=== PATIENT | female | born 1930 | race Caucasian/White ===

== ENCOUNTER → 2016-10-22 | Outpatient (CLI) | payer MEDICARE, BC, OTHER ==
[~2016-10-22] MED LIST: /PANT40TA OR; ACET65TA OR; ALPR0.25 OR; ASPI81TA83 OR; LIPI20TA OR; PLAV75TA2 OR
[2016-10-22 07:19] LABS: MEAN CORPUSCULAR HEMOGLOBIN 28.5 pg (27.0-33.0); MEAN CORPUSCULAR HGB CONC 32.2 g/dl (32.0-36.5); MEAN CORPUSCULAR VOLUME 88.5 fl (80.0-96.0); RED CELL DISTRIBUTION WIDTH 12.3 % (11.5-14.5); WHITE BLOOD COUNT 11.2 K/mm3 (4.0-10.0)
[2016-10-22 08:13] LABS: ALBUMIN 2.9 GM/DL (3.2-5.2); ALBUMIN/GLOBULIN RATIO 0.94 (1.00-1.93); ALKALINE PHOSPHATASE 93 U/L (45-117); ALT/SGPT 13 U/L (12-78); ANION GAP 9 MEQ/L (8-16); AST/SGOT 13 U/L (15-37); BILIRUBIN,TOTAL 0.4 MG/DL (0.2-1.0); BLOOD UREA NITROGEN 9 MG/DL (7-18); CARBON DIOXIDE LEVEL 28 MEQ/L (21-32); CHLORIDE LEVEL 103 MEQ/L (98-107); CHOLESTEROL LEVEL 173 MG/DL (<200); CREATININE FOR GFR 0.67 MG/DL (0.55-1.02); GLOMERULAR FILTRATION RATE > 60.0 (>32); GLUCOSE, FASTING 108 MG/DL (83-110); POTASSIUM SERUM 4.2 MEQ/L (3.5-5.1); SODIUM LEVEL 140 MEQ/L (136-145); TRIGLYCERIDES LEVEL 72 MG/DL (<150)
--- NOTE | 2016-10-22 08:29 | REP ---
Noncontrast head CT study: History: Headache syndrome. Low back pain. Comparison head CT study December 20, 2011. CT findings: Digital lateral program director scouting radiograph is noncontributory. Bone window settings demonstrate an intact bony calvarium. There is a small quantity of mucous in the left side of the sphenoid sinus. Otherwise the visualized paranasal sinuses are clear. Mild vascular calcification is noted in the distal carotid arteries bilaterally. There is diffuse mild to moderate cerebral atrophy. There is no evidence of intracranial hemorrhage. No mass lesion, extra-axial fluid collection, infarct or midline shift is seen. No significant change from the comparison CT study. Impression: Diffuse moderate atrophy and vascular calcification. No other significant finding. Signed by Jc Baldwin MD 10/22/2016 11:21 A
--- NOTE | 2016-10-22 08:39 | REP ---
Lumbar spine five views: There are no comparisons. There is mild scoliosis convex left. There is diffuse demineralization. There is disc space narrowing and degenerative disc disease at L5 S1. There is mild disc space narrowing and degenerative disc disease at the remainder of the disc spaces. Vertebral body heights and alignment are normal. There is no spondylolysis or spondylolisthesis. There is mild facet osteoarthritis. The pedicles are unremarkable. Sacroiliac articulations are unremarkable. There is a calcification in the midline of the pelvis, possibly a calcified uterine fibroid. Impression: Multilevel degenerative disc disease. Mild scoliosis. Mild facet osteoarthritis. Signed by Gato Corbett MD 10/22/2016 08:31 A
== END ==
LOC: M RAD 07:54
PROVIDERS: ATTEND Family Medicine
DX: R51 Headache (principal); E78.2 Mixed hyperlipidemia; R53.83 Other fatigue; M35.3 Polymyalgia rheumatica

== ENCOUNTER → 2016-11-02 | Outpatient (REF) | payer MEDICARE, BC, OTHER | LOC: M LAB REF 10:00 | PROVIDERS: ATTEND Surgery | DX: G93.81 Temporal sclerosis (principal) ==

== ENCOUNTER → 2016-11-17 | Outpatient (CLI) | payer MEDICARE, BC, OTHER ==
[2016-11-17 07:41] LABS: BASO % 0.1 % (0.0-1.0); EOS # 0.1 K/mm3 (0.0-0.50); EOS % 0.7 % (0.0-3.0); LARGE UNSTAINED CELL # 0.1 K/mm3 (0.0-0.4); LARGE UNSTAINED CELL % 0.7 % (0.0-4.0); LYMPH # 1.8 K/mm3 (1.5-4.5); LYMPH % 12.7 % (24.0-44.0); MEAN CORPUSCULAR HEMOGLOBIN 29.4 pg (27.0-33.0); MEAN CORPUSCULAR HGB CONC 32.5 g/dl (32.0-36.5); MEAN CORPUSCULAR VOLUME 90.6 fl (80.0-96.0); MONO # 0.7 K/mm3 (0.0-0.8); NEUTROPHILS # 11.6 K/mm3 (1.8-7.7); NEUTROPHILS % 80.9 % (36.0-66.0); PLATELET COUNT, AUTOMATED 249 k/mm3 (150-450); RED CELL DISTRIBUTION WIDTH 13.3 % (11.5-14.5); WHITE BLOOD COUNT 14.4 K/mm3 (4.0-10.0)
[2016-11-17 08:00] LABS: ALBUMIN 3.2 GM/DL (3.2-5.2); ALBUMIN/GLOBULIN RATIO 1.23 (1.00-1.93); ALKALINE PHOSPHATASE 98 U/L (45-117); ALT/SGPT 19 U/L (12-78); ANION GAP 8 MEQ/L (8-16); AST/SGOT 11 U/L (15-37); BILIRUBIN,TOTAL 0.5 MG/DL (0.2-1.0); BLOOD UREA NITROGEN 20 MG/DL (7-18); CALCIUM LEVEL 8.3 MG/DL (8.8-10.2); CARBON DIOXIDE LEVEL 27 MEQ/L (21-32); CHLORIDE LEVEL 105 MEQ/L (98-107); CREATININE FOR GFR 0.78 MG/DL (0.55-1.02); GLOMERULAR FILTRATION RATE > 60.0 (>32); GLUCOSE, FASTING 82 MG/DL (83-110); POTASSIUM SERUM 3.6 MEQ/L (3.5-5.1); SODIUM LEVEL 140 MEQ/L (136-145); TOTAL PROTEIN 5.8 GM/DL (6.4-8.2)
[2016-11-17 08:13] LABS: ERYTHROCYTE SEDIMENTATION RATE 5 mm/hr (0-42)
== END ==
LOC: M LAB 06:59
PROVIDERS: ATTEND Psychiatry & Neurology Neurology
DX: M31.6 Other giant cell arteritis (principal); Z86.73 Personal history of transient ischemic attack (TIA), and cerebral infarction without residual deficits

== ENCOUNTER → 2016-12-13 | Outpatient (CLI) | payer MEDICARE, BC, OTHER | LOC: M LAB 07:17 | PROVIDERS: ATTEND Physician Assistant Medical | DX: M31.6 Other giant cell arteritis (principal) ==

== ENCOUNTER → 2016-12-20 | Outpatient (REF) | payer MEDICARE, OTHER ==
[2016-12-20 12:53] LABS: BASO % 0.1 % (0.0-1.0); EOS % 0.2 % (0.0-3.0); LARGE UNSTAINED CELL % 0.1 % (0.0-4.0); LYMPH # 0.3 K/mm3 (1.5-4.5); LYMPH % 1.6 % (24.0-44.0); MEAN CORPUSCULAR HEMOGLOBIN 29.5 pg (27.0-33.0); MEAN CORPUSCULAR HGB CONC 33.3 g/dl (32.0-36.5); MEAN CORPUSCULAR VOLUME 88.6 fl (80.0-96.0); MONO # 0.3 K/mm3 (0.0-0.8); MONO % 1.9 % (0.0-5.0); NEUTROPHILS # 15.8 K/mm3 (1.8-7.7); NEUTROPHILS % 96.1 % (36.0-66.0); PLATELET COUNT, AUTOMATED 260 k/mm3 (150-450); RED CELL DISTRIBUTION WIDTH 14.5 % (11.5-14.5); WHITE BLOOD COUNT 16.4 K/mm3 (4.0-10.0)
== END ==
LOC: M SFHCPLAZ 09:57
PROVIDERS: ATTEND Physician Assistant Medical
DX: M31.5 Giant cell arteritis with polymyalgia rheumatica (principal)

== ENCOUNTER → 2017-01-07 | Outpatient (CLI) | payer MEDICARE, BC, OTHER ==
--- NOTE | 2017-01-07 09:13 | REP ---
Clinical: Pain. Technique: AP, lateral and swimmer's views of the thoracic spine. Findings: Advanced osteopenia and multilevel moderate degenerative changes include endplate sclerosis/irregularity and disc space narrowing. No acute fracture / compression injury or subluxation identified. Impression: Advanced osteopenia and multilevel degenerative changes. No acute fracture / compression injury. Signed by Jd Isaac MD 01/07/2017 09:04 A
--- NOTE | 2017-01-07 09:29 | REP ---
Lumbar spine five views: Comparisons 10/22/2016. There is diffuse demineralization, unchanged. There is mild scoliosis convex left, unchanged. There is diffuse demineralization. There is mild degenerative disc disease at every lumbar level. This is unchanged. Additionally, there is grade 1 compression deformity of the L3 vertebral body as an interval change, likely from insufficiency. The remainder of the vertebral body heights are normal. Alignment is normal. The pedicles, facets and sacroiliac articulations are unremarkable and unchanged. There is a calcification in the pelvis as previously, possibly a calcified uterine fibroid. Impression: There is new grade 1 compression deformity of the L3 vertebral body, likely from insufficiency. There is mild degenerative disc disease throughout the lumbar spine. There is diffuse demineralization. Pelvic calcification. Mild scoliosis. Signed by Gato Corbett MD 01/07/2017 09:19 A
== END ==
LOC: M RAD 07:55
PROVIDERS: ATTEND Physician Assistant Medical
DX: M62.838 Other muscle spasm (principal)

== ENCOUNTER → 2017-01-17 | Outpatient (CLI) | payer MEDICARE, BC, OTHER ==
--- NOTE | 2017-01-17 16:41 | REP ---
Pelvis bilateral hip study: Five views: History: Pain in the right hip. Findings: AP view of the pelvis demonstrates an intact bony pelvic ring. There is diffuse osteopenia. Vascular calcification is noted. No bony destructive lesion is seen. Multiple AP and frog-leg views of each hip show smooth rounded femoral heads and intact hip joint spaces bilaterally. No fracture or erosive changes seen. Impression: Diffuse osteopenia. No acute bony abnormality. Signed by Jc Baldwin MD 01/17/2017 05:01 P
== END ==
LOC: M RAD 16:08
PROVIDERS: ATTEND Physician Assistant Medical
DX: M25.551 Pain in right hip (principal); M85.88 Other specified disorders of bone density and structure, other site; M31.5 Giant cell arteritis with polymyalgia rheumatica; M80.88XA Other osteoporosis with current pathological fracture, vertebra(e), initial encounter for fracture
CPT/HCPCS: 36415; 73502; 85652; 86140; G0463; J0897

== ENCOUNTER → 2017-01-17 | Outpatient (REF) | payer MEDICARE, BC, OTHER | LOC: M LABDRAW1 16:07 | PROVIDERS: ATTEND Physician Assistant Medical | DX: M25.551 Pain in right hip (principal) ==

== ENCOUNTER → 2017-02-25 | Outpatient (CLI) | payer MEDICARE, BC, OTHER ==
--- NOTE | 2017-02-25 15:59 | REP ---
MRI OF THE RIGHT HIP: TECHNIQUE: Coronal T1, STIR through the pelvis, T2 fat sat, right hip all three planes, axial oblique proton density fat sat right hip. There is no evidence of occult fracture of the visualized osseous structures. There is no avascular necrosis. There is mild chondromalacia with mild subchondral marrow edema in the right acetabulum. There does appear to be a tear of the superior labrum and anterior labrum of the right hip. There is no paralabral cyst. There is a normal amount of joint fluid. There is ill-defined high signal on T2-weighted images in the right obturator externus muscle particularly in the medial aspect most consistent with a strain or partial tear. No abnormal signal is seen in the surrounding soft tissue structures. Incidental note is made of significant diverticulosis. IMPRESSION: No occult fracture. 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 There are tears of the anterior labrum and superior labrum of the right hip. There also appears to be a strain or partial tear of the medial aspect of the right obturator externus muscle. Signed by Gato Gomez MD 02/25/2017 04:48 P
== END ==
LOC: M PLARAD 13:23
PROVIDERS: ATTEND Physician Assistant Medical
DX: M25.551 Pain in right hip (principal)

== ENCOUNTER → 2017-03-28 | Outpatient (CLI) | payer MEDICARE, BC, OTHER | LOC: M LAB 12:26 | PROVIDERS: ATTEND Physician Assistant Medical | DX: M31.5 Giant cell arteritis with polymyalgia rheumatica (principal) | CPT/HCPCS: 36415; 85652; 86140; G0463 ==

== ENCOUNTER → 2017-04-06 | Outpatient (CLI) | payer MEDICARE, BC, OTHER ==
[~2017-04-06] MED LIST changes: +CONRAY-43 43% 50ML VIAL (Q9960) As Ordered ONE; +LIDOCAINE 1% MDV 20ML VIAL As Ordered ONE; +methylPREDNISolone SUSP 40 MG/ML (DEPO-medrol) VIAL (J1030) As Ordered ONE
--- NOTE | 2017-04-06 17:13 | REP ---
RIGHT HIP ARTHROGRAM: The procedure was performed by YENI Valenzuela under the direct supervision of Dr. Gomez. The procedure along with its risks, benefits, and complications were discussed with the patient prior to the examination. Informed consent was obtained both verbally and written. The right femoral neck was localized using fluoroscopic guidance. The skin was marked, prepped and draped in the usual sterile fashion. A procedural time out was performed to ensure that the correct patient, site and procedure were being performed. Local infiltrative anesthesia was achieved using 1% lidocaine. Under fluoroscopic guidance, a 22-gauge spinal needle was inserted and advanced to the femoral neck. 0.5 mL of Conray-60 was injected to verify placement. 5 mL of a solution containing 4 mL of 1% lidocaine and 1 mL of Depo-Medrol 40 mg were injected into the joint space. The needle was then removed. The patient tolerated the procedure well and had no immediate complications. Fluoroscopy time of 7 seconds. Reviewed by YENI Patrick 04/06/2017 05:32 PEdited and Signed by Gato Gomez MD 04/07/2017 07:57 P
== END ==
LOC: M RADPRO 09:34
PROVIDERS: ATTEND Physician Assistant Medical
DX: M25.551 Pain in right hip (principal); S73.191S Other sprain of right hip, sequela; Z88.8 Allergy status to other drugs, medicaments and biological substances; X58.XXXD Exposure to other specified factors, subsequent encounter; Y99.8 Other external cause status
CPT/HCPCS: 20610; 77002; J1030; Q9960

== ENCOUNTER → 2017-04-26 | Outpatient (REF) | payer MEDICARE, OTHER ==
[~2017-04-26] MED LIST changes: -CONRAY-43 43% 50ML VIAL (Q9960) As Ordered ONE; -LIDOCAINE 1% MDV 20ML VIAL As Ordered ONE; -methylPREDNISolone SUSP 40 MG/ML (DEPO-medrol) VIAL (J1030) As Ordered ONE
== END ==
LOC: M SFHCPLAZ 11:58
PROVIDERS: ATTEND Physician Assistant Medical
DX: M31.5 Giant cell arteritis with polymyalgia rheumatica (principal); Z23 Encounter for immunization
CPT/HCPCS: 85652; 86140; 90662; G0008; G0463

== ENCOUNTER → 2017-05-02 | Outpatient (CLI) | payer MEDICARE, BC, OTHER ==
--- NOTE | 2017-05-02 15:50 | REP ---
MRI lumbar spine without contrast: History: Compression fracture the L3 vertebra. Comparison radiographs are from January 07, 2017 and October 22, 2016. Technique: Sagittal and axial T1 and T2-weighted scans are acquired in the usual fashion with and without fat saturation. Sequences include spin echo, turbo spin-echo, and STIR imaging sequences. 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 Minimal right-sided hydronephrosis. There is straightening of the normal lumbar lordosis. There is a recent osteoporotic wedge compression fracture deformity involving the superior endplate of the L4 vertebral body. This is new when compared with the radiographs from January 07, 2017. There is approximately 30% loss of anterior vertebral body height. T2 hyperintense marrow edema is seen along the superior endplate at L4 on STIR images. There is also wedging of the L3 vertebral body with approximately 40% loss of vertebral body height. This shows low T1 but normal T2 signal. This is felt to be subacute. It is an interval radiographic change between the January 07, 2017 and the October 22, 2016 plain films. No marrow edema is seen at this level on T2 STIR images. There is upward convexity to the inferior endplate at L2 but no other recent compression fracture is seen. Vertebral body heights are otherwise preserved. There is straightening of the normal lumbar lordosis. Conus medullaris is normal in position and appearance at T12-L1. Axial and sagittal images at L1-L2 demonstrate diffuse disc bulging indenting the ventral margin of the thecal sac. No central canal stenosis is seen. No neural foraminal encroachment is noted. At L2-3, there is moderate diffuse disc bulging. Canal size is borderline. There is mild ligamentum flavum hypertrophy. No neural foraminal encroachment seen. At L3-4, there is mild central canal stenosis due to ligamentum flavum and facet hypertrophy as well as diffuse disc bulging. The AP mid sagittal dimension of the thecal sac at L3-4 is 10 mm. There is mild right-sided neural foraminal narrowing at L3-4. At L4-5, there is mild diffuse disc bulging. Canal size is borderline. Mid sagittal dimension of the thecal sac is 11 mm. No neural foraminal encroachment. Some facet hypertrophy and ligamentum flavum hypertrophy are noted. At L5-S1, there is a grade 1 degenerative 2 mm L5-S1 spondylolisthesis due to degenerative disc disease. Mild facet hypertrophy is noted. No disc protrusion or neural foraminal narrowing is seen. No evidence of spondylolysis. 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 2. Degenerative spondylosis changes with central canal stenosis at L3-4 and L2-3 to some degree. 3. Recent osteoporotic wedge compression deformities at L4 and L3 as described above. Signed by Jc Baldwin MD 05/02/2017 05:04 P
== END ==
LOC: M PLARAD 13:42
PROVIDERS: ATTEND Physician Assistant Medical
DX: S32.030A Wedge compression fracture of third lumbar vertebra, initial encounter for closed fracture (principal); Y92.89 Other specified places as the place of occurrence of the external cause; Y93.9 Activity, unspecified; Y99.9 Unspecified external cause status

== ENCOUNTER → 2017-06-18 | Outpatient (CLI) | payer MEDICARE, BC, OTHER | LOC: M LAB 12:08 | PROVIDERS: ATTEND Physician Assistant Medical | DX: M31.5 Giant cell arteritis with polymyalgia rheumatica (principal) ==

== ENCOUNTER → 2017-09-28 | Outpatient (REF) | payer MEDICARE, OTHER ==
[2017-09-28 17:53] LABS: C REACTIVE PROTEIN QUANTITATIV < 0.30 MG/DL (0.00-0.30)
[2017-09-28 18:36] LABS: BASO % 0.4 % (0.0-1.0); EOS % 0.2 % (0.0-3.0); HEMATOCRIT 39.7 % (36.0-47.0); HEMOGLOBIN 13.1 g/dl (12.0-16.0); IMMATURE GRANULOCYTE % 0.6 % (0-3.0); LYMPH # 0.8 10^3/uL (1.5-4.5); LYMPH % 10.2 % (24.0-44.0); MEAN CORPUSCULAR HEMOGLOBIN 30.4 pg (27.0-33.0); MEAN CORPUSCULAR VOLUME 92.1 fl (80.0-96.0); MONO # 0.6 10^3/uL (0.0-0.8); MONO % 6.9 % (0.0-5.0); NEUTROPHILS # 6.7 10^3/uL (1.8-7.7); NEUTROPHILS % 81.7 % (36.0-66.0); PLATELET COUNT, AUTOMATED 272 10^3/uL (150-450); RED BLOOD COUNT 4.31 10^6/uL (4.00-5.40); WHITE BLOOD COUNT 8.2 10^3/uL (4.0-10.0)
[2017-09-28 19:42] LABS: ERYTHROCYTE SEDIMENTATION RATE 7 mm/hr (0-42)
== END ==
LOC: M LABDRAW1 15:16
DX: M31.6 Other giant cell arteritis (principal)
CPT/HCPCS: 86140

== ENCOUNTER → 2018-01-26 | Outpatient (CLI) | payer MEDICARE, OTHER | LOC: M WUC 17:34 | DX: S80.11XA Contusion of right lower leg, initial encounter (principal); X58.XXXA Exposure to other specified factors, initial encounter; Y92.9 Unspecified place or not applicable | CPT/HCPCS: 73590 ==

== ENCOUNTER → 2018-04-13 | Outpatient (REF) | payer MEDICARE, OTHER ==
[2018-04-13 12:36] LABS: BASO # 0.1 10^3/uL (0.0-0.2); BASO % 1.1 % (0.0-1.0); EOS # 0.2 10^3/uL (0.0-0.50); EOS % 2.3 % (0.0-3.0); HEMATOCRIT 43.3 % (36.0-47.0); HEMOGLOBIN 13.9 g/dl (12.0-15.5); IMMATURE GRANULOCYTE % 0.4 % (0-3.0); LYMPH # 1.2 10^3/uL (1.5-4.5); LYMPH % 16.2 % (24.0-44.0); MEAN CORPUSCULAR HEMOGLOBIN 29.6 pg (27.0-33.0); MEAN CORPUSCULAR HGB CONC 32.1 g/dl (32.0-36.5); MEAN CORPUSCULAR VOLUME 92.3 fl (80.0-96.0); MONO # 0.7 10^3/uL (0.0-0.8); MONO % 9.3 % (0.0-5.0); NEUTROPHILS # 5.1 10^3/uL (1.8-7.7); NEUTROPHILS % 70.7 % (36.0-66.0); PLATELET COUNT, AUTOMATED 283 10^3/uL (150-450); RED BLOOD COUNT 4.69 10^6/uL (4.00-5.40); RED CELL DISTRIBUTION WIDTH 13.2 % (11.5-14.5); WHITE BLOOD COUNT 7.2 10^3/uL (4.0-10.0)
[2018-04-13 13:18] LABS: ALBUMIN 3.7 GM/DL (3.2-5.2); ALBUMIN/GLOBULIN RATIO 1.32 (1.00-1.93); ALKALINE PHOSPHATASE 56 U/L (45-117); ALT/SGPT 17 U/L (12-78); ANION GAP 8 MEQ/L (8-16); AST/SGOT 19 U/L (7-37); BILIRUBIN,TOTAL 0.5 MG/DL (0.2-1.0); BLOOD UREA NITROGEN 15 MG/DL (7-18); C REACTIVE PROTEIN QUANTITATIV < 0.30 MG/DL (0.00-0.30); CALCIUM LEVEL 8.9 MG/DL (8.8-10.2); CARBON DIOXIDE LEVEL 28 MEQ/L (21-32); CHLORIDE LEVEL 107 MEQ/L (98-107); CHOLESTEROL LEVEL 203 MG/DL (<200); CHOLESTEROL RISK RATIO 2.445 (<5); CREATININE FOR GFR 0.74 MG/DL (0.55-1.30); GLOMERULAR FILTRATION RATE > 60.0 (>32); GLUCOSE, FASTING 84 MG/DL (70-100); HDL CHOLESTEROL 83 MG/DL (>40); LDL CHOLESTEROL 98 MG/DL (<100); NON-HDL-C 120 MG/DL; POTASSIUM SERUM 4.2 MEQ/L (3.5-5.1); SODIUM LEVEL 143 MEQ/L (136-145); TOTAL PROTEIN 6.5 GM/DL (6.4-8.2); TRIGLYCERIDES LEVEL 108 MG/DL (<150)
[2018-04-13 13:33] LABS: ERYTHROCYTE SEDIMENTATION RATE 6 mm/hr (0-42)
== END ==
LOC: M LABDRAW1 12:10
DX: M31.5 Giant cell arteritis with polymyalgia rheumatica (principal)
CPT/HCPCS: 80053

== ENCOUNTER → 2018-07-27 | Outpatient (CLI) | payer MEDICARE, BC ==
--- NOTE | 2018-07-31 15:28 | DEXA ---
AP SPINE L1 - L4 1.088 -0.9 1.1 LT FEMUR TOTAL 0.626 -3.0 -0.6 LT NECK 0.640 -2.9 -0.4 RT FEMUR TOTAL 0.597 -3.3 -0.9 RT NECK 0.647 -2.8 -0.3 TOTAL BODY TOTAL OTHER COMMENTS: Normal bone densitometry of the spine. 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 There is degenerative change in the spine which may artificially elevate the BMD. The density of the spine is increased 73.5% since the initial exam on 02/13/2004. The spine density has increased 60.9% since the most recent exam on 03/18/2015. The density of the left hip has decreased 15.4% since the initial exam on 02/13/2004. The density of the left hip has decreased 9.7% since the most recent exam on 03/18/2015. The density of the right hip has decreased 14.6% since the initial exam on 02/13/2004. The density of the right hip has decreased 8.9% since the most recent exam on 03/18/2015. FOLLOW-UP: Recommendation for the next bone density exam: 2 years. GEORGIE
== END ==
LOC: M WHC 07:44
PROVIDERS: ATTEND Physician Assistant Medical
DX: M80.88XA Other osteoporosis with current pathological fracture, vertebra(e), initial encounter for fracture (principal); M85.851 Other specified disorders of bone density and structure, right thigh; M85.852 Other specified disorders of bone density and structure, left thigh

== ENCOUNTER → 2018-08-14 | Outpatient (REF) | payer MEDICARE ==
[2018-08-14 12:42] LABS: ALBUMIN 3.6 GM/DL (3.2-5.2); BLOOD UREA NITROGEN 17 MG/DL (7-18); CARBON DIOXIDE LEVEL 30 MEQ/L (21-32); CHLORIDE LEVEL 105 MEQ/L (98-107); CREATININE FOR GFR 0.79 MG/DL (0.55-1.30); GLOMERULAR FILTRATION RATE > 60.0 (>32); GLUCOSE, FASTING 89 MG/DL (70-100); PHOSPHORUS LEVEL 3.2 MG/DL (2.5-4.9); POTASSIUM SERUM 4.7 MEQ/L (3.5-5.1); SODIUM LEVEL 142 MEQ/L (136-145)
[2018-08-14 12:56] LABS: PTH INTACT 52.7 PG/ML (18.5-88.0)
[2018-08-14 13:51] LABS: TOTAL 25(OH) VITAMIN D 53.8 NG/ML (30.0-100.0)
== END ==
LOC: M LABDRAW1 09:20
PROVIDERS: ATTEND Physician Assistant Medical
DX: M80.88XG Other osteoporosis with current pathological fracture, vertebra(e), subsequent encounter for fracture with delayed healing (principal)

== ENCOUNTER → 2018-10-17 | Outpatient (REF) | payer MEDICARE ==
[~2018-10-17] MED LIST changes: -/PANT40TA OR; +PROT1TAB2 OR
[2018-10-17 12:36] LABS: BASO # 0.1 10^3/uL (0.0-0.2); BASO % 0.8 % (0.0-1.0); EOS # 0.3 10^3/uL (0.0-0.50); EOS % 4.4 % (0.0-3.0); HEMATOCRIT 41.5 % (36.0-47.0); HEMOGLOBIN 13.3 g/dl (12.0-15.5); LYMPH % 13.5 % (24.0-44.0); MEAN CORPUSCULAR HEMOGLOBIN 29.3 pg (27.0-33.0); MEAN CORPUSCULAR VOLUME 91.4 fl (80.0-96.0); MONO # 0.7 10^3/uL (0.0-0.8); MONO % 9.2 % (0.0-5.0); NEUTROPHILS # 5.4 10^3/uL (1.8-7.7); NEUTROPHILS % 71.7 % (36.0-66.0); PLATELET COUNT, AUTOMATED 291 10^3/uL (150-450); RED BLOOD COUNT 4.54 10^6/uL (4.00-5.40); WHITE BLOOD COUNT 7.6 10^3/uL (4.0-10.0)
[2018-10-17 12:53] LABS: ALBUMIN 3.5 GM/DL (3.2-5.2); ALT/SGPT 20 U/L (12-78); BILIRUBIN,TOTAL 0.4 MG/DL (0.2-1.0); BLOOD UREA NITROGEN 14 MG/DL (7-18); CALCIUM LEVEL 9.2 MG/DL (8.8-10.2); CARBON DIOXIDE LEVEL 30 MEQ/L (21-32); CHLORIDE LEVEL 106 MEQ/L (98-107); CPK CREATINE PHOSPHOKINASE 55 U/L (26-192); CREATININE FOR GFR 0.68 MG/DL (0.55-1.30); GLOMERULAR FILTRATION RATE > 60.0 (>32); GLUCOSE, FASTING 91 MG/DL (70-100); POTASSIUM SERUM 4.2 MEQ/L (3.5-5.1); SODIUM LEVEL 141 MEQ/L (136-145); TOTAL PROTEIN 6.2 GM/DL (6.4-8.2)
== END ==
LOC: M LABDRAW1 11:23
PROVIDERS: ATTEND Physician Assistant Medical
DX: Z51.81 Encounter for therapeutic drug level monitoring (principal); Z79.899 Other long term (current) drug therapy

== ENCOUNTER → 2019-05-10 | Outpatient (REF) | payer MEDICARE, OTHER ==
[2019-05-10 15:43] LABS: BASO # 0.1 10^3/uL (0.0-0.2); BASO % 0.7 % (0.0-1.0); EOS # 0.1 10^3/uL (0.0-0.5); EOS % 0.9 % (0.0-3.0); HEMATOCRIT 39.9 % (36.0-47.0); HEMOGLOBIN 12.9 g/dl (12.0-15.5); LYMPH # 1.2 10^3/uL (1.5-5.0); LYMPH % 14.3 % (24.0-44.0); MEAN CORPUSCULAR HEMOGLOBIN 29.2 pg (27.0-33.0); MEAN CORPUSCULAR HGB CONC 32.3 g/dl (32.0-36.5); MEAN CORPUSCULAR VOLUME 90.3 fl (80.0-96.0); MONO # 0.5 10^3/uL (0.0-0.8); MONO % 5.6 % (0.0-5.0); NEUTROPHILS # 6.7 10^3/uL (1.5-8.5); NEUTROPHILS % 78.1 % (36.0-66.0); PLATELET COUNT, AUTOMATED 320 10^3/uL (150-450); RED BLOOD COUNT 4.42 10^6/uL (4.00-5.40); WHITE BLOOD COUNT 8.6 10^3/uL (4.0-10.0)
[2019-05-10 16:24] LABS: ERYTHROCYTE SEDIMENTATION RATE 12 mm/hr (0-30)
== END ==
LOC: M LABDRAW1 15:26
PROVIDERS: ATTEND Physician Assistant Medical
DX: M31.5 Giant cell arteritis with polymyalgia rheumatica (principal)

== ENCOUNTER → 2019-05-10 | Outpatient (CLI) | payer MEDICARE, BC, OTHER ==
--- NOTE | 2019-05-10 15:55 | REP ---
Clinical: Polymyalgia rheumatica with back pain. Technique: AP, lateral, bilateral oblique and coned-down views of the lumbosacral spine. Findings: Osteopenia along with advanced multilevel degenerative changes, chronic levoconvex scoliosis, and chronic compression deformities at L2, L3, L4. Impression: Osteopenia and advanced degenerative spondylosis including chronic compression deformities. Electronically Signed by Jd Isaac MD 05/10/2019 03:47 P
== END ==
LOC: M RAD 15:00
PROVIDERS: ATTEND Physician Assistant Medical
DX: M47.897 Other spondylosis, lumbosacral region (principal); M85.88 Other specified disorders of bone density and structure, other site; M35.3 Polymyalgia rheumatica

== ENCOUNTER → 2020-01-02 | Outpatient (REF) | payer MEDICARE, OTHER ==
[2020-01-02 17:57] LABS: BASO # 0.1 10^3/uL (0.0-0.2); BASO % 0.9 % (0.0-1.0); EOS # 0.2 10^3/uL (0.0-0.5); EOS % 2.8 % (0.0-3.0); HEMATOCRIT 41.9 % (36.0-47.0); HEMOGLOBIN 13.6 g/dl (12.0-15.5); LYMPH # 1.3 10^3/uL (1.5-5.0); LYMPH % 16.4 % (24.0-44.0); MEAN CORPUSCULAR HEMOGLOBIN 29.6 pg (27.0-33.0); MEAN CORPUSCULAR HGB CONC 32.5 g/dl (32.0-36.5); MEAN CORPUSCULAR VOLUME 91.1 fl (80.0-96.0); MONO # 0.7 10^3/uL (0.0-0.8); MONO % 9.4 % (0.0-5.0); NEUTROPHILS # 5.5 10^3/uL (1.5-8.5); NEUTROPHILS % 70.1 % (36.0-66.0); PLATELET COUNT, AUTOMATED 300 10^3/uL (150-450); WHITE BLOOD COUNT 7.9 10^3/uL (4.0-10.0)
[2020-01-02 18:28] LABS: ALBUMIN 3.9 GM/DL (3.2-5.2); ALT/SGPT 19 U/L (12-78); BILIRUBIN,TOTAL 0.6 MG/DL (0.2-1.0); BLOOD UREA NITROGEN 18 MG/DL (7-18); CALCIUM LEVEL 10.1 MG/DL (8.8-10.2); CARBON DIOXIDE LEVEL 32 MEQ/L (21-32); CHLORIDE LEVEL 104 MEQ/L (98-107); CHOLESTEROL LEVEL 209 MG/DL (<200); CHOLESTEROL RISK RATIO 2.271 (<5); CPK CREATINE PHOSPHOKINASE 92 U/L (26-192); CREATININE FOR GFR 0.86 MG/DL (0.55-1.30); FREE T4 0.91 NG/DL (0.76-1.46); GLOMERULAR FILTRATION RATE > 60.0 (>32); GLUCOSE, FASTING 88 MG/DL (70-100); HDL CHOLESTEROL 92 MG/DL (>40); LDL CHOLESTEROL 107 MG/DL (<100); NON-HDL-C 117 MG/DL; POTASSIUM SERUM 4.6 MEQ/L (3.5-5.1); SODIUM LEVEL 141 MEQ/L (136-145); TRIGLYCERIDES LEVEL 51 MG/DL (<150)
== END ==
LOC: M SFHCPLAZ 15:57
PROVIDERS: ATTEND Physician Assistant Medical
DX: E78.00 Pure hypercholesterolemia, unspecified (principal); E78.49 Other hyperlipidemia; Z79.899 Other long term (current) drug therapy
CPT/HCPCS: 36415; 80053; 80061; 82550; 84439; 84443; 85025; G0463

== ENCOUNTER → 2020-01-30 | Outpatient (CLI) | payer MEDICARE, OTHER ==
[~2020-01-30] MED LIST changes: +AMLO1TAB24; +BENA25CA4 PO; +D31000TA2 PO; +LIDO5DIS41 TD; +PRED1TABL PO; +PRED20TA PO; +SIMV10TA21; +TRAM50TA2 PO
[2020-01-30 13:16] LABS: BASO # 0.1 10^3/uL (0.0-0.2); BASO % 0.9 % (0.0-1.0); EOS # 0.2 10^3/uL (0.0-0.5); EOS % 2.3 % (0.0-3.0); HEMATOCRIT 43.2 % (36.0-47.0); HEMOGLOBIN 13.8 g/dl (12.0-15.5); LYMPH % 12.3 % (24.0-44.0); MEAN CORPUSCULAR HEMOGLOBIN 29.3 pg (27.0-33.0); MEAN CORPUSCULAR HGB CONC 31.9 g/dl (32.0-36.5); MEAN CORPUSCULAR VOLUME 91.7 fl (80.0-96.0); MONO # 0.7 10^3/uL (0.0-0.8); MONO % 9.4 % (0.0-5.0); NEUTROPHILS # 5.8 10^3/uL (1.5-8.5); NEUTROPHILS % 74.7 % (36.0-66.0); PLATELET COUNT, AUTOMATED 282 10^3/uL (150-450); RED BLOOD COUNT 4.71 10^6/uL (4.00-5.40); WHITE BLOOD COUNT 7.8 10^3/uL (4.0-10.0)
[2020-01-30 14:14] LABS: ERYTHROCYTE SEDIMENTATION RATE 11 mm/hr (0-30)
== END ==
LOC: M PLALAB 09:57
PROVIDERS: ATTEND Physician Assistant Medical
DX: H92.01 Otalgia, right ear (principal)

== ENCOUNTER 2020-03-14 10:17 | Emergency (ER) | payer MEDICARE, BC, OTHER ==
[~2020-03-14] VITALS: Ht 152.4 cm; Wt 43.6 kg
[~2020-03-14 10:17] MED LIST changes: -AMLO1TAB24; -BENA25CA4 PO; -D31000TA2 PO; -LIDO5DIS41 TD; -PRED1TABL PO; -PRED20TA PO; -SIMV10TA21; -TRAM50TA2 PO
[2020-03-14] MEDS ORDERED: AMLO1TAB24 (10:39)
[2020-03-14] MEDS ORDERED: SIMV10TA21 (10:39)
[2020-03-14] MEDS ORDERED: PRED1TABL PO (11:21)
[2020-03-14] MEDS ORDERED: D31000TA2 PO (11:21)
[2020-03-14] MEDS ORDERED: LIDOCAINE 5% (LIDODERM) PATCH TD ONE (12:00)
--- NOTE | 2020-03-14 12:30 | REPVR ---
PROCEDURE INFORMATION: Exam: XR Lumbosacral Spine, 4 or 5 Views Exam date and time: 03/14/2020 12:11 PM Age: 89 years old Clinical indication: Injury or trauma; Injury history: Hyperflexed and felt a pop followed by extreme pain. ; Initial encounter; Sprain or strain, lumbar ligaments; Additional info: Hyperflexed, felt pop then pain TECHNIQUE: Imaging protocol: XR of the lumbosacral spine, 4 or 5 views. COMPARISON: CR Spine. Lumbosacral, complete 05/10/2019 3:24 PM FINDINGS: Vertebrae: There are similar compression deformities at L2, L3 and L4. There is also mild new compression of the superior L1 endplate. Vertebral body heights are otherwise intact. A grade 1 spondylolisthesis is again present at L5-S1. A mild levoscoliotic curvature is again present. Alignment is otherwise maintained. The pedicles appear intact. It is difficult to evaluate for pars defects without oblique views. No acute fracture is identified. There is fairly similar multilevel facet arthrosis, disc space narrowing and marginal osteophyte formation. Soft tissues: Grossly unremarkable. Vasculature: Atherosclerotic vascular calcifications are noted. Other findings: The bones again appear osteopenic. IMPRESSION: 1. Degenerative disk disease, fairly similar as compared with 05/10/19, which could be better evaluated by means of MRI as clinically indicated. 2. Persistent apparent osteopenia with similar compression deformities at L2, L3 and L4, with mild new, but otherwise age indeterminate compression of the superior L1 endplate. Electronically signed by: Daniel Slater On 03/14/2020 12:29:20 PM
[2020-03-14] MEDS ORDERED: TRAM50TA2 PO (13:31)
[2020-03-14] MEDS ORDERED: LIDO5DIS41 TD (13:31)
--- NOTE | 2020-03-14 13:53 | REPVR ---
PROCEDURE INFORMATION: Exam: CT Lumbar Spine Without Contrast Exam date and time: 03/14/2020 1:27 PM Age: 89 years old Clinical indication: Low back pain; Additional info: Lumbar compression FX, R/O retropulsion TECHNIQUE: Imaging protocol: Computed tomography images of the lumbar spine without contrast. Radiation optimization: All CT scans at this facility use at least one of these dose optimization techniques: automated exposure control; mA and/or kV adjustment per patient size (includes targeted exams where dose is matched to clinical indication); or iterative reconstruction. COMPARISON: 1. CR Spine. Lumbosacral, complete 03/14/2020 11:48 AM 2. MRI-Spine, L.S. without con 05/02/2017 2:28:37 PM FINDINGS: Vertebrae: There is mild compression of the superior L1 endplate, which could be recent, without significant fragment retropulsion. Moderate biconcave compression of the L2 and L3 vertebral bodies appears chronic. There is no significant fragment retropulsion at L2. Broad-based central fragment retropulsion at L3 measures up to approximately 3 mm superiorly and 4 mm inferiorly, the latter of which appears to be associated with spinal stenosis in conjunction with disc osteophyte complex at L3-L4, which appears similar to the prior MRI. Moderate compression of the superior L4 endplate appears chronic as well. This is also associated with approximately 4 mm broad-based central fragment retropulsion, also apparently associated with spinal stenosis in conjunction with disc osteophyte complex at L3-L4. Vertebral body heights are otherwise intact. There is again a grade 1 spondylolisthesis at L5-S1 with a mild levoscoliotic curvature. Alignment is otherwise maintained. No pars defect is identified. Discs/Spinal canal/Neural foramina: There is multilevel disc space narrowing, facet arthrosis and marginal osteophyte formation with variable narrowing of several neural foramina. CT is not optimal for the evaluation of the discs, neural foramina or spinal canal or cord. The appearance of the discs is not grossly changed, again with probable spinal stenosis at L3-L4 and L4-L5. Other bones/joints: The bones again appear osteopenic. Kidneys and ureters: Horseshoe kidney is noted. Stomach and bowel: There is sigmoid colonic diverticulosis without evidence for diverticulitis. Vasculature: Atherosclerotic vascular calcifications are noted. Soft tissues: There is no significant paraspinal hematoma. IMPRESSION: 1. Apparent osteopenia with multilevel vertebral body compression, including potentially recent, mild compression of the superior L1 endplate, which is not associated with significant fragment retropulsion. Fragment retropulsion at L3 and L4 appears to lead to spinal stenosis in conjunction with a disc osteophyte complex at L3-L4, but this does not appear significantly changed as compared with MRI of 05/02/17. The canal could be better evaluated with MRI as clinically appropriate. 2. Spondylosis without gross change in disc displacements. Again, this could be better evaluated with MRI. Electronically signed by: Daniel Slater On 03/14/2020 13:53:34 PM
[2020-03-14 14:04] VITALS: BP 176/78
[2020-03-14] MEDS ORDERED: **NOTE PATIENT COMMENT** MISC XX SCH (21:00)
--- NOTE | 2020-03-15 14:20 | ED PDOC ---
Post-Departure Follow-Up dr david perez faxed formal report of ct ls spine for fu Davida Edwards MD Mar 15, 2020 14:20
== END 2020-03-14 14:20 | disposition home or self-care (01) ==
LOC: M ED 10:17
DX: S32.018A Other fracture of first lumbar vertebra, initial encounter for closed fracture (principal); X58.XXXA Exposure to other specified factors, initial encounter; Y92.89 Other specified places as the place of occurrence of the external cause; I10 Essential (primary) hypertension; K21.9 Gastro-esophageal reflux disease without esophagitis; Z79.899 Other long term (current) drug therapy; Z79.82 Long term (current) use of aspirin; Z79.01 Long term (current) use of anticoagulants; Z88.8 Allergy status to other drugs, medicaments and biological substances

== ENCOUNTER 2020-03-27 17:06 | Emergency (ER) | payer MEDICARE, BC, OTHER ==
[~2020-03-27] VITALS: Ht 152.4 cm; Wt 44.2 kg
[~2020-03-27 17:06] MED LIST changes: +AMLO1TAB24; +D31000TA2 PO; +LIDO5DIS41 TD; +PRED1TABL PO; +SIMV10TA21; +TRAM50TA2 PO
[2020-03-27] MEDS ORDERED: diphenhydrAMINE 50MG CAP PO ONE (18:00)
[2020-03-27] MEDS ORDERED: FAMOTIDINE 20 MG TAB PO ONE (18:00)
[2020-03-27] MEDS ORDERED: predniSONE 20 MG TAB PO ONE (18:00)
[2020-03-27] MEDS ORDERED: PRED20TA PO (18:43)
[2020-03-27] MEDS ORDERED: BENA25CA4 PO (18:43)
[2020-03-27 19:01] VITALS: BP 142/70
== END 2020-03-27 19:41 | disposition home or self-care (01) ==
LOC: M ED 17:06
DX: R09.89 Other specified symptoms and signs involving the circulatory and respiratory systems (principal); L29.9 Pruritus, unspecified; T78.40XA Allergy, unspecified, initial encounter; X58.XXXA Exposure to other specified factors, initial encounter; Y92.89 Other specified places as the place of occurrence of the external cause; I10 Essential (primary) hypertension; Z79.899 Other long term (current) drug therapy; Z79.82 Long term (current) use of aspirin; Z79.01 Long term (current) use of anticoagulants; Z88.8 Allergy status to other drugs, medicaments and biological substances

== ENCOUNTER 2020-04-11 14:47 | Emergency (ER) | payer MEDICARE, BC, OTHER ==
[~2020-04-11] VITALS: Ht 152.4 cm; Wt 41.8 kg
[~2020-04-11 14:47] MED LIST changes: +BENA25CA4 PO; +PRED20TA PO
[2020-04-11] MEDS ORDERED: KETOROLAC 30 MG/ML 1ML VIAL IM ONE (16:30)
[2020-04-11] MEDS ORDERED: ACETAMINOPHEN TAB 650MG DOSE (2X325MG) PO ONE (16:30)
[2020-04-11 17:00] VITALS: BP 161/80
== END 2020-04-11 17:04 | disposition home or self-care (01) ==
LOC: M ED 14:47
DX: M62.830 Muscle spasm of back (principal); Z88.8 Allergy status to other drugs, medicaments and biological substances; Z79.82 Long term (current) use of aspirin; Z79.899 Other long term (current) drug therapy
CPT/HCPCS: 96372; 99283; J1885

== ENCOUNTER 2020-05-30 10:19 | Inpatient (IN) | payer MEDICARE, BC, OTHER ==
[~2020-05-30] VITALS: Ht 152.4 cm; Wt 40.7 kg
[~2020-05-30 10:19] MED LIST changes: -SIMV10TA21; +SIMV10TA21 PO
[2020-05-30] MEDS ORDERED: diazePAM 5 MG TAB PO ONE (11:15)
--- NOTE | 2020-05-30 12:11 | REP ---
INDICATION: rib pain. COMPARISON: Chest radiograph 12/20/2011. TECHNIQUE: Four views bilateral ribs performed. FINDINGS: No fracture or bone lesion is seen. No infiltrate is seen in either lung. The heart is normal in size. There is mild calcification and tortuosity of the thoracic aorta. IMPRESSION: No evidence of rib fracture or bone lesion. <Electronically signed by Gato Gomez > 05/30/20 [id number]
--- NOTE | 2020-05-30 12:59 | REPVR ---
PROCEDURE INFORMATION: Exam: CT Thoracic Spine Without Contrast Exam date and time: 05/30/2020 12:39 PM Age: 89 years old Clinical indication: Pain in thoracic intervertebral disc disorder; Other: Pain/difficulty standing TECHNIQUE: Imaging protocol: Computed tomography images of the thoracic spine without contrast. Radiation optimization: All CT scans at this facility use at least one of these dose optimization techniques: automated exposure control; mA and/or kV adjustment per patient size (includes targeted exams where dose is matched to clinical indication); or iterative reconstruction. COMPARISON: CR Spine, Thoracic 3 VIEWS 01/07/2017 8:13 AM FINDINGS: Vertebrae: There is a mild thoracic dextroscoliosis. There is accentuation of the normal thoracic kyphosis. There is a mild T8 compression deformity. There is a severe T10 compression fracture with diffuse sclerotic change. There are superior endplate fractures at T12 and L1, with mild and moderate loss of height, respectively. These are of indeterminate acuity. Discs/Spinal canal/Neural foramina: No significant disc protrusion. No severe spinal canal stenosis. No significant neural foraminal narrowing. Soft tissues: Unremarkable. IMPRESSION: Suspected chronic mild T8 and severe T10 compression deformities. Superior endplate fractures at T12 and L1 of indeterminate acuity but potentially acute. These could be further assessed with MRI. Electronically signed by: Adele Delgado On 05/30/2020 12:59:02 PM
[2020-05-30] MEDS ORDERED: PERCOCET 5MG/325MG TAB PO ONE (13:45)
[2020-05-30] MEDS ORDERED: PANT20TA6 PO (13:52)
[2020-05-30] MEDS ORDERED: PLAV1TAB2 PO (14:05)
[2020-05-30] MEDS ORDERED: DIPH25CA32 PO (14:05)
[2020-05-30] MEDS ORDERED: ACET650T3 PO (14:05)
[2020-05-30] MEDS ORDERED: ASPI81TA26 PO (14:05)
[2020-05-30] MEDS ORDERED: TRAM50TA2 PO (14:06)
[2020-05-30 14:37] LABS: BASO % 0.4 % (0.0-1.0); EOS % 0.4 % (0.0-3.0); HEMATOCRIT 40.5 % (36.0-47.0); LYMPH # 0.9 10^3/uL (1.5-5.0); LYMPH % 10.2 % (24.0-44.0); MEAN CORPUSCULAR HGB CONC 32.1 g/dl (32.0-36.5); MEAN CORPUSCULAR VOLUME 90.2 fl (80.0-96.0); MONO # 0.7 10^3/uL (0.0-0.8); MONO % 7.7 % (0.0-5.0); NEUTROPHILS # 7.2 10^3/uL (1.5-8.5); PLATELET COUNT, AUTOMATED 288 10^3/uL (150-450); RED BLOOD COUNT 4.49 10^6/uL (4.00-5.40); WHITE BLOOD COUNT 8.9 10^3/uL (4.0-10.0)
[2020-05-30] MEDS ORDERED: CALC1CHW PO (14:49)
[2020-05-30] MEDS ORDERED: GUMMCHW PO (14:49)
--- NOTE | 2020-05-30 17:57 | HPEPDOC ---
[facility] Medical History & Physical Date of Admission May 30, 2020 Date of Service: May 30, 2020 History and Physical CHIEF COMPLAINT: Back pain HISTORY OF PRESENT ILLNESS: 89-year-old female past medical history of TIA and hypertension presents with ongoing back pain she has a known history of compression fractures since 2017 with a mechanical accident in March of this year exacerbating her pre- existing problem. She has presented to the ED multiple consecutive occasions complaining of this back pain which prohibits her from performing many of her routine daily functions. Patient lives at home with her and is independent and uses a walker at home. 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 She has tried tramadol and Tylenol to control her pain which are moderately successful but she has become very frustrated and seeking further help. Patient describes her back pain as 10 out of 10 at times but is relieved by certain positions. On review of systems patient describes she's been losing weight because she has been unable to cook in the kitchen and getting up to eat is very painful. In the ED Dr. Madison orthopedics was consulted who recommended MRI of her back and he will see her over the weekend. PAST MEDICAL HISTORY: TIA 2017 Hypertension not on any medications PAST SURGICAL HISTORY: Hysterectomy Tonsillectomy Right carpal tunnel release surgery Bilateral cataract surgery SOCIAL HISTORY: Denies alcohol use Denies tobacco use Denies illicit drug use Lives at home with her where she is independent and uses a walker at home. FAMILY HISTORY: Sister had diabetes Both mother and father have a history of hypertension Father had a history of CVA ALLERGIES: Please see below. REVIEW OF SYSTEMS: 10 point review of systems complete all negative otherwise stated in HPI Constitutional: No sweating Eyes: No eye pain or acute blurred vision HENT: No complaints of headache or sore throat Cadiovascular: No Chest pain or palpitations Pulm: No SOB or cough Gastrointestinal: No N/V, no abdominal pain. Genitourinary: No dysuria or hematuria Musculoskeletal: Per HPI Skin: No rash or jaundice HOME MEDICATIONS: Please see below. PHYSICAL EXAMINATION: Constitutional: Awake and alert, in no apparent distress when not moving and in mild distress from her back pain when she tried to get out of the bed. ENT: Sclera are clear. Mucosa is moist. Respiratory: Lungs CTA bilaterally. No respiratory distress. No use of accessory muscles. Cardiovascular: RRR S1 and S2 are normal, no murmur Gastrointestinal: Abdomen is soft, non distended, non tender, BS present. Musculoskeletal: No edema. RUE 5/5, LUE 5/5, BLE 5/5. Straight leg test negative. Tenderness along palpation of majority of spine. No hip pain on pal pation or manipulation. Neurologic: No focal neurological deficit. Mental Status: A&O x3, normal affect Skin: Warm, dry LABORATORY DATA: See below. IMAGING: MRI pending. MICROBIOLOGY: Please see below. ASSESSMENT/PLAN 89-year-old female past medical history of TIA and hypertension admitted for evaluation by orthopedics for compression fractures and pain control. # Back pain: Suspected to be due to compression fractures. Orthopedics consulted. Pain control with tramadol and Tylenol. PT/OT. Fu MRI. # HTN: not on any home medications. Patient refuses to take any anti- hypertensive medications. She does seem to have isolated systolic hyptertension which is acceptable for her age. I will respect her wishes and we can just monitor her BP for now. # DVT prophylaxis: Heparin A Youse[facility] Hospitalist Vital Signs Vital Signs Date Time Temp Pulse Resp B/P (MAP) Pulse Ox O2 Delivery O2 Flow Rate FiO2 05/30/20 15:18 97.4 69 18 153/68 (96) 96 Room Air Laboratory Data Labs 24H Laboratory Tests 2 05/30/20 13:55: Immature Granulocyte % (Auto) 0.3, Neutrophils (%) (Auto) 81.0H, Lymphocytes (%) (Auto) 10.2L, Monocytes (%) (Auto) 7.7H, Eosinophils (%) (Auto) 0.4, Basophils (%) (Auto) 0.4, Neutrophils # (Auto) 7.2, Lymphocytes # (Auto) 0.9L, Monocytes # (Auto) 0.7, Eosinophils # (Auto) 0.0, Basophils # (Auto) 0.0, Nucleated Red Blood Cells % (auto) 0.0 05/30/20 14:24: POC Glucose (Misc Panel) 99, POC Sodium (Misc Panel) 136, POC Potassium (Misc Panel) 4.3, POC Chloride (Misc Panel) 103, POC Total CO2 (Misc Panel) 29.0H, POC Blood Urea Nitrogen (Misc Panel 15, POC Ionized Calcium (Misc Panel) 4.9, POC Creatinine (Misc Panel) 0.6, POC Hematocrit (Misc Panel) 38.0 CBC/BMP Laboratory Tests 05/30/20 13:55 Home Medications Scheduled Aspirin (Aspirin EC) 81 Mg Tablet.dr, 81 MG PO QHS Baclofen (Baclofen) 10 Mg Tablet, 5 MG PO QHS Calcium Phosphate Trib/Vit D3 (Calcium Adult Gummies) 1 Each Tab.chew, 2 TAB PO DAILY Cholecalciferol (Vitamin D3) (Vitamin D3) 1,000 Unit Tablet, 2,000 UNITS PO BID Clopidogrel Bisulfate (Plavix) 75 Mg Tablet, 75 MG PO DAILY Pantoprazole Sodium (Pantoprazole Sodium) 20 Mg Tablet.dr, 20 MG PO BID Simvastatin (Simvastatin) 10 Mg Tablet, 10 MG PO QHS Scheduled PRN Acetaminophen (Pain Reliever) 650 Mg Tablet.er, 650 MG PO Q8H PRN for PAIN Diphenhydramine HCl (Diphenhydramine HCl) 25 Mg Capsule, 25 MG PO Q6H PRN for ITCHING/SWELLING Tramadol HCl (Tramadol HCl) 50 Mg Tablet, 50 MG PO Q6H PRN for PAIN Allergies Coded Allergies: tizanidine (Verified Allergy, Severe, anaphalaxis, 04/11/20) SUGAR Inhibitors (Verified Allergy, Unknown, 04/11/20) lisinopril (Verified Allergy, Unknown, 03/14/20) verapamil (Verified Allergy, Unknown, 03/14/20) A-FIB/CHADSVASC A-FIB History Current/History of A-Fib/PAF?: No ALICIA WARREN MD May 30, 2020 17:57
[2020-05-30] MEDS ORDERED: ACETAMINOPHEN 650MG ER TAB (TYLENOL ARTHRITIS) PO PRN (18:00)
[2020-05-30] MEDS ORDERED: traMADol 50 MG TAB PO PRN (18:00)
[2020-05-30] MEDS ORDERED: diphenhydrAMINE 25MG CAP PO PRN (18:00)
[2020-05-30] MEDS ORDERED: MOM 30ML SUSPENSION UDC PO PRN (18:15)
[2020-05-30 21:40] VITALS: BP 160/80
--- NOTE | 2020-05-30 21:50 | REPVR ---
PROCEDURE INFORMATION: Exam: MR Thoracic Spine Without Contrast Exam date and time: 05/30/2020 2:35 PM Age: 89 years old Clinical indication: Condition or disease; Other: Evalute new compression fractures-stir weighted TECHNIQUE: Imaging protocol: Multiplanar magnetic resonance images of the thoracic spine without intravenous contrast. COMPARISON: CT Spine,thoracic w/o contrast 05/30/2020 12:33 PM FINDINGS: Vertebrae: Acute compression fracture of the inferior endplate of T8 vertebra with 40% vertebral height loss. Acute to subacute fracture of the T10 vertebra with 50% vertebral height loss. Acute stir fracture at the superior endplate of T11 vertebra with approximately 10% vertebral height loss. Acute fracture of the superior endplate of T12 vertebra with approximately 40% vertebral height loss. Acute fracture of the superior endplate of L1 with approximately 50% vertebral height loss. Spinal cord: Normal signal. No cord compression. No spinal canal stenosis. Multilevel degenerative disc disease. Soft tissues: Unremarkable. IMPRESSION: Multiple acute compression fractures of the thoracic spine with no retropulsion. Acute fractures involve T8, T10, T11, T10 and L1 vertebrae. Electronically signed by: Dion Escobar On 05/30/2020 21:50:26 PM
[2020-05-30] MEDS: BACLOFEN 5MG PER 1/2 TABLET PO SCH (23:02)
[2020-05-30] MEDS: ASPIRIN 81 MG ENTERIC TAB PO SCH (23:02)
[2020-05-30] MEDS: VITAMIN D 1,000 INTERNATIONAL UNITS TABLET PO SCH (23:03)
[2020-05-30] MEDS: PANTOPRAZOLE 20 MG TAB PO SCH (23:03)
[2020-05-30] MEDS: HEPARIN SOD (PORCINE) 5000UNITS/ML 1ML VIAL/SYRINGE SC SCH (23:03)
[2020-05-30] MEDS: DOCUSATE SODIUM 100 MG CAP PO SCH (23:03)
[2020-05-30] MEDS: SIMVASTATIN 10 MG TAB PO SCH (23:03)
[2020-05-31 06:00] VITALS: BP 140/66
[2020-05-31 06:45] LABS: HEMATOCRIT 37.4 % (36.0-47.0); HEMOGLOBIN 12.2 g/dl (12.0-15.5); MEAN CORPUSCULAR HEMOGLOBIN 29.5 pg (27.0-33.0); MEAN CORPUSCULAR HGB CONC 32.6 g/dl (32.0-36.5); MEAN CORPUSCULAR VOLUME 90.6 fl (80.0-96.0); PLATELET COUNT, AUTOMATED 280 10^3/uL (150-450); RED BLOOD COUNT 4.13 10^6/uL (4.00-5.40); WHITE BLOOD COUNT 6.9 10^3/uL (4.0-10.0)
[2020-05-31 07:11] LABS: BLOOD UREA NITROGEN 14 MG/DL (7-18); CALCIUM LEVEL 9.4 MG/DL (8.8-10.2); CARBON DIOXIDE LEVEL 27 MEQ/L (21-32); CHLORIDE LEVEL 108 MEQ/L (98-107); CREATININE FOR GFR 0.65 MG/DL (0.55-1.30); GLOMERULAR FILTRATION RATE > 60.0 (>32); GLUCOSE, FASTING 95 MG/DL (70-100); POTASSIUM SERUM 3.9 MEQ/L (3.5-5.1); SODIUM LEVEL 140 MEQ/L (136-145)
[2020-05-31] MEDS: HEPARIN SOD (PORCINE) 5000UNITS/ML 1ML VIAL/SYRINGE SC SCH ×2 (10:03→20:44)
[2020-05-31] MEDS: PANTOPRAZOLE 20 MG TAB PO SCH ×2 (10:03→20:44)
[2020-05-31] MEDS: CLOPIDOGREL 75 MG TAB PO SCH (10:04)
[2020-05-31] MEDS: VITAMIN D 1,000 INTERNATIONAL UNITS TABLET PO SCH ×2 (10:04→20:44)
[2020-05-31] MEDS: DOCUSATE SODIUM 100 MG CAP PO SCH ×2 (10:04→20:44)
--- NOTE | 2020-05-31 10:38 | IPNPDOC ---
Text Note Date of Service The patient was seen on 05/31/20. NOTE Subjective: Patient seen and examined this morning at bedside. Pending orthopedics evaluation. Patient tells me she's been trying to move using her walker to the bathroom and back and she has had her pain under control. She has no complaints at this time. Nurse tells me there is no overnight events. Objective: Constitutional: Awake and alert, in no apparent distress when not moving and in mild distress from her back pain when she tried to get out of the bed. ENT: Sclera are clear. Mucosa is moist. Respiratory: Lungs CTA bilaterally. No respiratory distress. No use of accessory muscles. Cardiovascular: RRR S1 and S2 are normal, no murmur Gastrointestinal: Abdomen is soft, non distended, non tender, BS present. Musculoskeletal: No edema. RUE 5/5, LUE 5/5, BLE 5/5. Straight leg test negative. Tenderness along palpation of majority of spine. No hip pain on palpa tion or manipulation. Neurologic: No focal neurological deficit. Mental Status: A&O x3, normal affect Skin: Warm, dry Imaging: MRI spine thoracic; impressions: Multiple acute compression fractures of the thoracic spine with no retropulsion. Acute fractures involve T8, T10, T11, T10 and L1 vertebrae Assessment/plan: 89-year-old female past medical history of TIA and hypertension admitted for evaluation by orthopedics for compression fractures and pain control. # Back pain: Multiple acute compression fractures of thoracic spine. Orthopedics consulted Dr islas.. Pain control with tramadol and Tylenol. PT/OT. MRI as above. # HTN: not on any home medications. BP acceptable for age isolated systolic HTN. # Hx TIA: ASA, statin. # DVT prophylaxis: Heparin A Yousef Hospitalist A Yousef Hospitalist VS,Luis, I+O VS, [place], I+O Laboratory Tests 05/30/20 13:55 05/31/20 06:08 Vital Signs Date Time Temp Pulse Resp B/P (MAP) Pulse Ox O2 Delivery O2 Flow Rate FiO2 05/31/20 06:00 98.7 74 18 140/66 (90) 96 Room Air I&O- Last 24 Hours up to 6 AM 05/31/20 06:00 Intake Total 600 ml Output Total 300 ml Balance 300 ml ALICIA WARREN MD May 31, 2020 10:38
[2020-05-31 14:00] VITALS: BP 136/74
[2020-05-31] MEDS: BACLOFEN 5MG PER 1/2 TABLET PO SCH (20:44)
[2020-05-31] MEDS: SIMVASTATIN 10 MG TAB PO SCH (20:44)
[2020-05-31] MEDS: ASPIRIN 81 MG ENTERIC TAB PO SCH (20:44)
[2020-05-31 22:00] VITALS: BP 141/73
[2020-06-01 06:00] VITALS: BP 119/65
[2020-06-01] MEDS: CLOPIDOGREL 75 MG TAB PO SCH (09:18)
[2020-06-01] MEDS: HEPARIN SOD (PORCINE) 5000UNITS/ML 1ML VIAL/SYRINGE SC SCH (09:18)
[2020-06-01] MEDS: DOCUSATE SODIUM 100 MG CAP PO SCH (09:18)
[2020-06-01] MEDS: VITAMIN D 1,000 INTERNATIONAL UNITS TABLET PO SCH (09:18)
[2020-06-01] MEDS: PANTOPRAZOLE 20 MG TAB PO SCH (09:18)
[2020-06-01 14:00] VITALS: BP 134/65
--- NOTE | 2020-06-01 15:43 | DS.PDOC ---
Discharge Summary General Date of Admission May 30, 2020 at 18:03 Date of Discharge 06/01/2020 Discharge Summary PROCEDURES PERFORMED DURING STAY: [None]. ADMITTING DIAGNOSES: 1. back pain DISCHARGE DIAGNOSES: 1. Multiple acute compression fractures of thoracic spine. COMPLICATIONS/CHIEF COMPLAINT: Compression Fracture Of T10 Vertebra. HISTORY OF PRESENT ILLNESS: from H&P: 89-year-old female past medical history of TIA and hypertension presents with ongoing back pain she has a known history of compression fractures since 2016 with a mechanical accident in March of this year exacerbating her pre-existing problem. She has presented to the ED multiple consecutive occasions complaining of this back pain which prohibits her from performing many of her routine daily functions. Patient lives at home with her and is independent and uses a walker at home. 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 She has tried tramadol and Tylenol to control her pain which are moderately successful but she has become very frustrated and seeking further help. Patient describes her back pain as 10 out of 10 at times but is relieved by certain positions. On review of systems patient describes she's been losing weight because she has been unable to cook in the kitchen and getting up to eat is very painful.In the ED Dr. Madison orthopedics was consulted who recommended MRI of her back. HOSPITAL COURSE: 89-year-old female past medical history of TIA and hypertension admitted for evaluation by orthopedics for compression fractures and pain control. Orthopedics evaluated the patient at bedside on 06/01/2020 and recommended conservative treatment ambulation as tolerated and pain control. # Back pain: Multiple acute compression fractures of thoracic spine. Orthopedics consulted Dr islas. Pain control with tramadol and Tylenol. patient only wants Tylenol. PT/OT. MRI as below. # HTN: not on any home medications. BP acceptable for age isolated systolic HTN. # Hx TIA: ASA, statin. DISCHARGE MEDICATIONS: Please see below. ALLERGIES: Please see below. PHYSICAL EXAMINATION ON DISCHARGE: Constitutional: Awake and alert, in no apparent distress when not moving and in mild distress from her back pain when she tried to get out of the bed. ENT: Sclera are clear. Mucosa is moist. Respiratory: Lungs CTA bilaterally. No respiratory distress. No use of accessory muscles. Cardiovascular: RRR S1 and S2 are normal, no murmur Gastrointestinal: Abdomen is soft, non distended, non tender, BS present. Musculoskeletal: No edema. RUE 5/5, LUE 5/5, BLE 5/5. Straight leg test negative. spine tender with movement at certain angles. Neurologic: No focal neurological deficit. Mental Status: A&O x3, normal affect Skin: Warm, dry LABORATORY DATA: Please see below. IMAGING: MRI spine thoracic; impressions: Multiple acute compression fractures of the thoracic spine with no retropulsion. Acute fractures involve T8, T10, T11, T10 and L1 vertebrae PROGNOSIS: fair ACTIVITY: [As tolerated]. DIET: regular DISPOSITION: home DISCHARGE INSTRUCTIONS: Please follow up with your primary care physician within 1 week from discharge. If you do not have one, please follow up with us to schedule an appointment. Please keep all of your follow up appointments. Please call central to book your appointments with hospital specialists. Please take all your medications as prescribed. Please call/come to Clinic or go to the Emergency Department if - Temp >101, intractable Nausea/Vomiting, Diarrhea, Mouth sores, Headaches, Altered mental status, Seizures, sudden onset of swelling, bleeding, shortness of breath or chest pain. ITEMS TO FOLLOWUP ON ON OUTPATIENT: 1. Follow-up with PCP within 3-5 days of discharge. 2. Follow-up with orthopedic surgery in clinic DISCHARGE CONDITION: [Stable]. TIME SPENT ON DISCHARGE: Greater than 35 minutes. Vital Signs/I&Os Vital Signs Date Time Temp Pulse Resp B/P (MAP) Pulse Ox O2 Delivery O2 Flow Rate FiO2 06/01/20 14:00 96.9 85 20 134/65 (88) 98 Room Air I&O- Last 24 Hours up to 6 AM 06/01/20 06:00 Intake Total 800 ml Output Total 1000 ml Balance -200 ml Discharge Medications Scheduled Aspirin (Aspirin EC) 81 Mg Tablet.dr, 81 MG PO QHS, (Reported) Baclofen (Baclofen) 10 Mg Tablet, 5 MG PO QHS Calcium Phosphate Trib/Vit D3 (Calcium Adult Gummies) 1 Each Tab.chew, 2 TAB PO DAILY, (Reported) Cholecalciferol (Vitamin D3) (Vitamin D3) 1,000 Unit Tablet, 2,000 UNITS PO BID, (Reported) Clopidogrel Bisulfate (Plavix) 75 Mg Tablet, 75 MG PO DAILY, (Reported) Pantoprazole Sodium (Pantoprazole Sodium) 20 Mg Tablet., 20 MG PO BID, (Reported) Simvastatin (Simvastatin) 10 Mg Tablet, 10 MG PO QHS, (Reported) Scheduled PRN Acetaminophen (Pain Reliever) 650 Mg Tablet.er, 650 MG PO Q8H PRN for PAIN Diphenhydramine HCl (Diphenhydramine HCl) 25 Mg Capsule, 25 MG PO Q6H PRN for ITCHING/SWELLING, (Reported) Tramadol HCl (Tramadol HCl) 50 Mg Tablet, 50 MG PO Q6H PRN for PAIN, (Reported) Allergies Coded Allergies: tizanidine (Verified Allergy, Severe, anaphalaxis, 04/11/20) SUGAR Inhibitors (Verified Allergy, Unknown, 04/11/20) lisinopril (Verified Allergy, Unknown, 03/14/20) verapamil (Verified Allergy, Unknown, 03/14/20) ALICIA WARREN MD Jun 01, 2020 15:42
[2020-06-01] MEDS ORDERED: ACET650T3 PO (15:44)
[2020-06-01] MEDS ORDERED: BACL10TA2 PO (15:44)
--- NOTE | 2020-06-03 08:33 | CR ---
DATE OF CONSULTATION: 06/01/2020 REASON FOR CONSULTATION: Back pain. HISTORY OF PRESENT ILLNESS: This patient has been having back pain going on since March. She had an L1 compression fracture she tells me around the March time frame. She more recently was working around the house, working in the attic putting some things away, and felt something had hurt in the back and then, had severe enough pain that she came into the emergency room for further evaluation. She was then admitted for pain management because of intractable discomfort. She had imaging studies that reflected multiple compression fractures and now an MRI that reflects, what I think, is a subacute compression fracture around the L1-T12 level and then more acute compression fractures at T8, T10, and T11 with no vertical plana. The patient indicates that it hurts to move around, it hurts to lift things, and it hurts if she turns a certain way. In fact, she is not interested in bracing, does not feel a brace would be very helpful, and she is hoping to avoid any surgical intervention. She is taking pain medicine as per the hospitalist medical record review. Her admission H&P, review of systems, medication list, and past history as reviewed in the [facility] medical record. Her imaging is also reviewed, as well as the reports. CLINICAL EXAMINATION: She is alert, oriented, and cooperative. Mood and affect appropriate. Very pleasant and spry and appears to be significantly younger than her stated age of 89. There is no cough. No shortness of breath. She is standing in the room. She is able to move about. She does twist and produce significant pain in the back and some wincing. Neurologically no focal deficit. No atrophy. No clonus. No wide-based gait. IMPRESSION: Osteoporosis, multiple compression fractures some acute and some subacute. RECOMMENDATIONS: I talked to the patient about lifting restrictions. We talked about strategies for avoiding compression fractures, including not lifting anything heavier than a half-gallon of milk, avoiding lifting jammed windows, avoiding shoving things. Ultimately, the best management is aggressive osteoporosis management; however, she is already taking Prolia. She may need to explore with her primary provider whether there could be any other options for her for more aggressive management of the osteoporosis. We talked about operative and nonoperative management. Operative management has become less common, although kyphoplasty or vertebroplasty is sometimes still implemented, and she would like to avoid that. We talked about bracing and she does not feel that she would tolerate a brace. We talked about light activities, observation over time, and that is how she wants to proceed. I would be happy to see her in the clinic. She has also been seen in our orthopedic office in the past. She can follow-up with us in the office on an as needed basis. We also talked about healing time frame. These fractures tend to heal over a period of 8-10 weeks. She understands that I suspect the current acute exacerbation of the pain is not so much from the Kerrie fractures, but from the new fractures and the subacute fractures probably are not that painful right now. She is comfortable with our plans. I spent approximately 30 minutes together today with the patient. GEORGIE
== END 2020-06-01 17:08 | disposition home or self-care (01) | DRG 552 ==
LOC: M ED 10:19 → M ED INP 18:03 → ENRESERV 21:18 → M MSPAV 21:38
PROVIDERS: ADMIT Family Medicine; ATTEND Family Medicine
DX: S22.060A Wedge compression fracture of T7-T8 vertebra, initial encounter for closed fracture (principal); S32.010A Wedge compression fracture of first lumbar vertebra, initial encounter for closed fracture; I10 Essential (primary) hypertension; Z86.73 Personal history of transient ischemic attack (TIA), and cerebral infarction without residual deficits; Z98.41 Cataract extraction status, right eye; Z98.42 Cataract extraction status, left eye; Z79.82 Long term (current) use of aspirin; Z79.899 Other long term (current) drug therapy; Z88.8 Allergy status to other drugs, medicaments and biological substances; S22.070A Wedge compression fracture of T9-T10 vertebra, initial encounter for closed fracture; X58.XXXA Exposure to other specified factors, initial encounter; Y92.018 Other place in single-family (private) house as the place of occurrence of the external cause; Y93.E9 Activity, other interior property and clothing maintenance; Y99.8 Other external cause status; Z20.828 Contact with and (suspected) exposure to other viral communicable diseases

== ENCOUNTER → 2020-06-09 | Outpatient (REF) | payer MEDICARE, OTHER ==
[~2020-06-09] MED LIST changes: +ACET650T3 PO; +ASPI81TA26 PO; +BACL10TA2 PO; +CALC1CHW PO; +DIPH25CA32 PO; +GUMMCHW PO; +PANT20TA6 PO; +PLAV1TAB2 PO
== END ==
LOC: M SFHCPLAZ 11:01
PROVIDERS: ATTEND Physician Assistant Medical
DX: M35.3 Polymyalgia rheumatica (principal)

== ENCOUNTER → 2020-11-25 | Outpatient (REF) | payer MEDICARE, OTHER ==
[2020-11-25 11:00] LABS: BASO # 0.1 10^3/uL (0.0-0.2); BASO % 0.9 % (0.0-1.0); EOS # 0.4 10^3/uL (0.0-0.5); EOS % 5.4 % (0.0-3.0); HEMATOCRIT 40.5 % (36.0-47.0); HEMOGLOBIN 12.8 g/dl (12.0-15.5); LYMPH # 1.3 10^3/uL (1.5-5.0); LYMPH % 18.7 % (24.0-44.0); MEAN CORPUSCULAR HEMOGLOBIN 28.2 pg (27.0-33.0); MEAN CORPUSCULAR HGB CONC 31.6 g/dl (32.0-36.5); MEAN CORPUSCULAR VOLUME 89.2 fl (80.0-96.0); MONO # 0.8 10^3/uL (0.0-0.8); MONO % 11.8 % (2.0-8.0); NEUTROPHILS # 4.2 10^3/uL (1.5-8.5); NEUTROPHILS % 62.9 % (36.0-66.0); PLATELET COUNT, AUTOMATED 261 10^3/uL (150-450); RED BLOOD COUNT 4.54 10^6/uL (4.00-5.40); WHITE BLOOD COUNT 6.7 10^3/uL (4.0-10.0)
[2020-11-25 11:11] LABS: ALBUMIN 3.6 GM/DL (3.2-5.2); BLOOD UREA NITROGEN 17 MG/DL (7-18); CALCIUM LEVEL 9.1 MG/DL (8.8-10.2); CARBON DIOXIDE LEVEL 29 MEQ/L (21-32); CHLORIDE LEVEL 108 MEQ/L (98-107); CHOLESTEROL LEVEL 204 MG/DL (<200); CHOLESTEROL RISK RATIO 2.518 (<5); CREATININE FOR GFR 0.61 MG/DL (0.55-1.30); FERRITIN 11 NG/ML (8-252); GLOMERULAR FILTRATION RATE > 60.0 (>32); GLUCOSE, FASTING 84 MG/DL (70-100); HDL CHOLESTEROL 81 MG/DL (>40); LDL CHOLESTEROL 104 MG/DL (<100); NON-HDL-C 123 MG/DL; PHOSPHORUS LEVEL 3.7 MG/DL (2.5-4.9); POTASSIUM SERUM 4.4 MEQ/L (3.5-5.1); SODIUM LEVEL 142 MEQ/L (136-145); TRIGLYCERIDES LEVEL 94 MG/DL (<150)
[2020-11-25 11:17] LABS: PTH INTACT 37.1 PG/ML (18.5-88.0); TOTAL 25(OH) VITAMIN D 69.7 NG/ML (30.0-100.0); VITAMIN B12 LEVEL 536 PG/ML (247-911)
[2020-11-25 11:32] LABS: ERYTHROCYTE SEDIMENTATION RATE 11 mm/hr (0-30)
== END ==
LOC: M SFHCPLAZ 07:57
PROVIDERS: ATTEND Family Medicine
DX: E55.9 Vitamin D deficiency, unspecified (principal); M31.5 Giant cell arteritis with polymyalgia rheumatica; E78.2 Mixed hyperlipidemia; I10 Essential (primary) hypertension; Z79.82 Long term (current) use of aspirin; Z79.899 Other long term (current) drug therapy